=== PATIENT | female | born 1955 | race Caucasian/White ===

== ENCOUNTER 2016-09-23 10:41 | Inpatient (IN) ==
--- NOTE | 2016-09-22 21:02 | Discharge Summary ---
<Caryn Salazar - Last Filed: 09/22/16 20:58> Date of Encounter: 09/24/16 - Discharge Diagnosis (1) Rotator cuff tear arthropathy of right shoulder Priority: Primary Status: Acute (2) Tobacco abuse Priority: Secondary Status: Chronic (3) Obesity Priority: Secondary Status: Chronic Qualifiers: Obesity type: unspecified obesity type Obesity severity: unspecified obesity severity Qualified Code(s): E66.9 - Obesity, unspecified - Discharge Medications Prescriptions: Oxycodone HCl/Acetaminophen [Percocet 5-325 mg Tablet] 1 - 2 each PO Q6H PRN # 40 tablet PRN Reason: Pain Home Medications: Acetaminophen [Tylenol] 500 mg PO Q6HR PRN 05/29/16 [History] Oxycodone HCl/Acetaminophen [Percocet 5-325 mg Tablet] 1 - 2 each PO Q6H PRN # 40 tablet 09/24/16 [Rx] Allergies/Adverse Reactions: Allergies Penicillins [PCN] Adverse Reaction (Verified 05/29/16 08:29) Nausea tramadol Adverse Reaction (Verified 05/29/16 08:18) Nausea Primary care physician: Shakira Shi - Patient Status Disposition: Home, Self-Care Condition: Good - Discharge Instructions Follow Up With: Felipe Petty MD [Partnered Physician] - 10/22/16 9:05 am Caryn Salazar, MARIAH [Physician Reset Merchandiser] - 10/03/16 9:00 am Shakira Shi MD [Primary Care Provider] - - Hospital Course Hospital course: Ms. Lee is a 61 year old female - Time Spent with Patient Total time spent providing and/or coordinating discharge services: <Felipe Petty - Last Filed: 09/24/16 06:21> Date of Encounter: 09/24/16 Time of Encounter: 06:19 - Discharge Diagnosis (1) Rotator cuff tear arthropathy of right shoulder Priority: Primary Status: Acute (2) Obesity Priority: Secondary Status: Chronic Qualifiers: Obesity type: unspecified obesity type Obesity severity: unspecified obesity severity Qualified Code(s): E66.9 - Obesity, unspecified (3) Tobacco abuse Priority: Secondary Status: Chronic Primary care physician: Shakira Shi - Patient Status Functional capacity at discharge: independent ambulation Overall status at discharge: patient is progressing back to baseline - Hospital Course Hospital course: Ms. Lee is a 61 year old female The patient had an uneventful postoperative course. They received antibiotics and physical therapy and were discharged in stable condition. There will follow -up in the office in 2 weeks. - Time Spent with Patient Total time spent providing and/or coordinating discharge services:
[~2016-09-23 10:41] MED LIST: *HR* Enoxaparin 30 MG/0.3 ML SYRINGE SQ SCH
[2016-09-23] MEDS ORDERED: Albuterol 2.5 MG/3 ML NEBULIZER IH ONE (11:07)
[2016-09-23] MEDS ORDERED: CeFAZolin Pre 2,000 MG/100 ML 2,000 MG/100 ML BAG IVPB ONE (11:07)
[2016-09-23] MEDS ORDERED: Ringers Solution, Lactated 1,000 ML IVC SCH ×2 (11:15→15:13)
--- NOTE | 2016-09-23 11:26 | Anesthesia Evaluation PreOp ---
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 CONSULTANT History: Denies Any Significant HX Other Medical History: Denies Any Significant HX Anesthesia History: No Prior Anesthetic Complications, Past Anesthesia Alcohol Use: none Drug use: none Medications and Allergies Acetaminophen [Tylenol] 500 mg PO Q6HR PRN 05/29/16 [History] Clindamycin [Cleocin] 150 mg PO Q6HR #8 capsule 05/29/16 [Rx] OxyCODONE Immed Rel [Roxicodone 5 MG] 5 - 10 mg PO Q8HR PRN #40 tablet 09/22/16 [Rx] Allergies Penicillins [PCN] Adverse Reaction (Verified 05/29/16 08:29) Nausea tramadol Adverse Reaction (Verified 05/29/16 08:18) Nausea - Meds/Allergy Pre-op Review Medications Reviewed: Yes Allergies Reviewed: Yes Beta Blockers on Current Med List: No Anesthesia Results - Labs Laboratory Tests 09/17/16 09/17/16 09/17/16 14:44 14:44 14:44 WBC 7.4 Hgb 15.4 Hct 45.6 H Plt Count 261 PT 10.5 INR 1.0 APTT 31.7 Sodium 141 Potassium 4.5 BUN 13 Creatinine 0.99 - Imaging EKG: report reviewed (05/29/2016 SR, NSST abnormality) Anesthesia Exam O2 Sat Height 1.57 m Height 1.57 m Weight 100.244 kg Weight 100.244 kg O2 Sat by Pulse Oximetry 94 Vital Signs Temp Pulse Resp BP Pulse Ox 98.0 F 71 18 107/70 94 L 09/23/16 11:03 09/23/16 11:03 09/23/16 11:03 09/23/16 11:03 09/23/16 11:03 Height: 5'2'' Weight: 221 lbs NPO (# of Hours): 8 Pain Scale: 7 (right shoulder) Pain Scale Used: Numeric (1 - 10) - HEENT Pupil (Motor): EOMI Mallampati: II Teeth: Normal Oral Opening: Greater than 3 - FARM SERVICE CONSULTANT LOC: Oriented FARM SERVICE CONSULTANT Motor: Normal LUE, Normal RLE, Normal LLE, Normal Face, Deficit RUE FARM SERVICE CONSULTANT Sensory: Normal: RUE, LUE, RLE, LLE, Face - Cardiac Rhythm: Regular Murmur: None - Pulmonary Breath Sounds: bilateral Clear Respiratory Effort: Symmetrical Anesthesia Assess/Plan ASA Score: 2 Modified Damaris Scale for Level of Consciousness: Cooperative, oriented, and tranquil Anesthetic Plan: General (pt refuses nerve block for post-op pain control) Monitoring Plan: Standard Monitors Recovery Plan: PACU
[2016-09-23] MEDS ORDERED: Lidocaine -MPF 4% 5 ML AMPUL ONE (11:51)
[2016-09-23] MEDS ORDERED: *HR* Succinylcholine 200 MG/10 ML VIAL IVP ONE (11:51)
[2016-09-23] MEDS ORDERED: *HR* Rocuronium Bromide 50 MG/5 ML VIAL ONE (11:51)
[2016-09-23] MEDS ORDERED: Ondansetron 4 MG/2 ML VIAL ONE ×2 (11:51→13:46)
[2016-09-23] MEDS ORDERED: Dexamethasone 4 MG/ML VIAL ONE ×2 (11:51→13:46)
[2016-09-23] MEDS ORDERED: *HR* Propofol 200 MG/20 ML VIAL IVP ONE (11:52)
[2016-09-23] MEDS ORDERED: Lidocaine -MPF 2% 2 ML VIAL ONE (11:52)
[2016-09-23] MEDS ORDERED: *HR* Morphine 2 MG/ML SYRINGE IVP PRN (11:57)
[2016-09-23] MEDS ORDERED: *HR* Meperidine 25 MG/ML SYRINGE IVP PRN (11:57)
[2016-09-23] MEDS ORDERED: *HR* Promethazine 25 MG/ML VIAL IVP PRN (11:57)
[2016-09-23] MEDS ORDERED: *HR* HYDROmorphone (PF) 1 MG/ML SYRINGE IVP PRN ×2 (11:57→15:13)
[2016-09-23] MEDS ORDERED: *HR* Labetalol 100 MG/20 ML MDV IVP PRN (11:57)
--- NOTE | 2016-09-23 12:03 | History & Physical Report ---
Date of Encounter: 09/23/16 Time of Encounter: 12:03 24 Hour HP Update - Instructions Instructions: If the History and Physical is less than 30 days old and was completed prior to A.M. admission and or procedure and has NOT been updated on calendar day of procedure please complete this update prior to performing procedure. - Update Patient reports changes in Medical Condition: No Changes in assessment/condition: No Changes in Medication: No Preop tests/diagnostics Reviewed: Yes Surgery Remains Indicated: Yes Consent for Planned Operative Procedure(s) Verified: Yes - Pre-Operative Checklist Preoperative Checklist Indicated: No Prophylactic Antibiotic Ordered: Yes Is VTE Prophylaxis Indicated?: Yes
[2016-09-23] MEDS ORDERED: *HR* FentaNYL (PF) 100 MCG/2 ML VIAL ONE ×2 (12:51→13:02)
[2016-09-23] MEDS ORDERED: EPHEDrine 50 MG/ML VIAL ONE (13:33)
[2016-09-23] MEDS ORDERED: Ketorolac 30 MG/ML VIAL ONE (13:47)
--- NOTE | 2016-09-23 14:04 | Orthopedic Operative Note ---
Date of procedure: 09/23/16 Pre-op diagnosis: Right shoulder cuff tear arthropathy Post-op diagnosis: same Procedure: Procedure: Right Total Shoulder Replacment Reverse, Estimated blood loss: 100 cc Hardware:Arthrex medium glenoid baseplate, 2 4.5 screws. 1 6.5 screw, 39 lateral glenosphere, 6 humeral stem, poly insert 3 Exam Under anesthesia: Full motion no instability Procedural Notes: Irreparable tear supraspinatus tendon Operative procedure: The patient was brought to the operating room and placed on the operating room table. After general anesthesia was administered the operative shoulder was examined. Findings were noted. The patient was placed in the modified beachchair position. All pressure points were padded appropriately. And the head was stabilized in the neutral position. The operative extremity was prepped and draped in the sterile surgical fashion. The patient received IV antibiotics prior to skin incision. A standard deltopectoral approach was made to the operative shoulder. Incision was made to the skin and subcutaneous tissue,hemo stasis was obtained with Bovie cautery. Using careful blunt dissection the cephalic vein was identified and mobilized medially. The deltopectoral interval was developed and the clavipectoral fascia was incised. The subscap was released off the lesser tuberosity and tagged with #2 FiberWire suture. The humerus was dislocated patient noted to have irreparable tear supraspinatus tendon, and the humeral cut was made along the anatomic neck. Anterior and posterior Bankart retractors were placed to expose the glenoid. The glenoid guide was seated and the centering hole was made. It was reamed with the appropriate medial reamer. The medium baseplate was seated and secured with (2) 4.5 screws and one 6.5 screw. The baseplate was irrigated and dried and the 39 lateral Glenosphere was seated and secured with the Mcnamara taper. The Mcnamara taper was tested and found to be secure the humerus was redislocated and prepared with the diaphyseal reamers, followed by a broaching process up to the appropriate size 6 in the patient's anatomic version. The metaphyseal reamer was then utilized. Trial reduction found the shoulder to be relocatable. Trial components were removed and drill holes were placed in the lesser tuberosity. They were filled with #5 FiberWire suture. These sutures were used for a subscap repair. The appropriate 6 stem was impacted in place in the patient's anatomic version. Trial reduction found the shoulder to be relocatable and stable with the appropriate 3. Trial component was removed and the real 3 Cici was seated and secured the shoulder was reduced. The shoulder had excellent motion and excellent stability and no evidence of dislocation. The deep tissue was irrigated with pulse irrigation. The subscap was repaired incorporating the biceps tendon for biceps tenodesis and a subscap repair. The deltopectoral interval was closed with a running #1 PDS suture, subcutaneous tissue was irrigated and closed with 0 PDS suture, the skin was closed with Dermabond. The patient was placed in a sterile dressing, abduction brace and extubated. The patient was then transferred to the recovery room in stable condition. Anesthesia: GETA Surgeon: Felipe Petty Condition: stable Disposition: PACU
[2016-09-23] MEDS ORDERED: *HR* Meperidine 25 MG/ML SYRINGE ONE (14:26)
[2016-09-23] MEDS ORDERED: *HR* HYDROmorphone (PF) 1 MG/ML SYRINGE ONE (14:27)
[2016-09-23 14:56] LABS: Hematocrit 43.4 % (35.3-44.9); Hemoglobin 14.1 g/dL (11.5-15.4)
--- NOTE | 2016-09-23 15:07 | Anesthesia Evaluation Post Op ---
Date of Encounter: 09/23/16 Time of Encounter: 15:06 - Vital Signs Vital Signs: Vital Signs/O2 Sat, Most Current Temp Pulse Resp BP Pulse Ox 97.6 F 57 16 151/87 96 09/23/16 15:02 09/23/16 15:02 09/23/16 15:02 09/23/16 15:02 09/23/16 15:02 - Lungs Lungs: Clear Ascult./Percussion - Airway Airway: Non-obstructed - Cardiovascular Regular Rate - Mental Status Mental Status: Alert & Oriented, Answers Appropriately - Pain Pain Scale: 6 Pain Scale used: Numeric (1 - 10) - Nausea Vomiting Nausea Vomiting: Not Present - Hydration Hydration: NPO, Has not voided - Discharge PostOp Status: Transfer Patient to floor
[2016-09-23] MEDS ORDERED: MOM Conc 10 ML UD.LIQ PO PRN (15:13)
[2016-09-23] MEDS ORDERED: Temazepam 15 MG CAPSULE PO PRN (15:13)
[2016-09-23] MEDS ORDERED: *HR* OxyCODONE Immed Rel 5 MG TABLET PO PRN (15:13)
[2016-09-23] MEDS ORDERED: Ondansetron 4 MG/2 ML VIAL IVP PRN (15:13)
[2016-09-23] MEDS ORDERED: Naloxone 0.4 MG/ML INJ IVP PRN (15:13)
[2016-09-23] MEDS ORDERED: Sennosides 8.6 MG TABLET PO PRN (15:13)
[2016-09-23] MEDS: *HR* OxyCODONE Immed Rel 5 MG TABLET PO PRN ×2 (16:20→21:40)
[2016-09-23] MEDS: Clindamycin 900 MG/50 ML 900 MG/50 ML IV.SOLN IVPB SCH ×2 (16:20→23:05)
[2016-09-23] MEDS: Acetaminophen 325 MG TABLET PO PRN ×2 (16:25→21:40)
[2016-09-23] MEDS: *HR* Enoxaparin 30 MG/0.3 ML SYRINGE SQ SCH (18:31)
[2016-09-24] MEDS: *HR* OxyCODONE Immed Rel 5 MG TABLET PO PRN ×2 (02:47→06:46)
[2016-09-24] MEDS: *HR* Enoxaparin 30 MG/0.3 ML SYRINGE SQ SCH (05:19)
[2016-09-24 06:04] LABS: Hematocrit 41.1 % (35.3-44.9); Hemoglobin 13.4 g/dL (11.5-15.4)
--- NOTE | 2016-09-24 06:21 | Orthopedics Progress Note ---
Date of Encounter: 09/24/16 Time of Encounter: 06:21 - Assessment and Plan (1) Rotator cuff tear arthropathy of right shoulder Current Visit: Yes Status: Acute (2) Obesity Current Visit: Yes Status: Chronic Qualifiers: Obesity type: unspecified obesity type Obesity severity: unspecified obesity severity Qualified Code(s): E66.9 - Obesity, unspecified (3) Tobacco abuse Current Visit: Yes Status: Chronic Subjective Interval history: Patient was seen this morning doing well without complaints. Afebrile vital signs stable. Operative extremity: Neurovascularly intact Dressing clean dry and intact Calves nontender Assessment and plan: Continue with postoperative care Discharge today Objective Vital signs: Vital Signs Temp Pulse Resp BP Pulse Ox 09/24/16 03:49 98.6 F 60 19 113/62 92 L 09/24/16 00:08 98.8 F 58 17 117/70 93 L 09/23/16 20:22 98.1 F 54 16 97/59 95 09/23/16 18:27 98.1 F 58 16 102/66 96 09/23/16 17:30 97.4 F L 58 16 100/63 96 09/23/16 16:40 97.6 F 57 16 98/65 95 09/23/16 16:00 97.9 F 68 16 105/70 97 09/23/16 15:16 98.0 F 62 16 129/65 99 09/23/16 15:02 97.6 F 57 16 151/87 96 09/23/16 14:52 97.6 F 62 16 133/85 100 09/23/16 14:42 75 16 126/74 98 09/23/16 14:32 76 14 112/80 97 09/23/16 14:27 70 14 135/71 94 L 09/23/16 14:22 97.7 F 74 14 144/82 97 09/23/16 11:03 98.0 F 71 18 107/70 94 L Intake and Output 09/23/16 09/23/16 09/24/16 15:59 23:59 07:59 Intake Total 250 / 250 150 / 150 Output Total 100 / 100 Balance -100 / -100 250 / 250 150 / 150 Intake: IV Fluids 50 / 50 50 / 50 Cleocin 900 MG/50 ML 900 50 / 50 50 / 50 mg In 50 ml @ 50 mls/hr IVPB Q8HR URIEL Rx#: [id number] Oral 200 / 200 100 / 100 Output: Estimated Blood Loss 100 / 100 Other: # Voids 1 1 Weight 100.244 kg - Labs CBC & BMP: 09/24/16 05:27 - VTE Documentation of Mechanical Device: Venous foot pump, device Consult Discharge Plan - Plan Referrals: Felipe Petty MD [Partnered Physician] - 10/22/16 9:05 am Caryn Salazar, PAC [Physician Staff Radiologist] - 10/03/16 9:00 am Shakira Shi MD [Primary Care Provider] - Prescriptions: Oxycodone HCl/Acetaminophen [Percocet 5-325 mg Tablet] 1 - 2 each PO Q6H PRN # 40 tablet PRN Reason: Pain
[2016-09-24 06:29] VITALS: BP 107/70
[2016-09-24] MEDS: Acetaminophen 325 MG TABLET PO PRN (08:11)
== END 2016-09-24 12:16 | disposition home or self-care (01) | DRG 315 ==
LOC: SAMDAY 10:41 → 3NENU 15:19
PROVIDERS: ADMIT Orthopaedic Surgery; ATTEND Orthopaedic Surgery